=== PATIENT | male | born 1980 | race Caucasian/White ===

== ENCOUNTER → 2019-06-19 | Outpatient (CLI) | payer OTHER ==
--- NOTE | 2019-06-23 03:40 | ECWPNPC ---
PATIENT NAME: MICHAEL BUTLER : 1980 GENDER: MALE VISIT DATE: 06/19/2019 DISCHARGE DATE: 06/19/19 1025 VISIT LOCKED DATE TIME: PHYSICIAN: CHUCK PAYNE MD RESOURCE: CHUCK PAYNE MD REASON FOR APPOINTMENT 1. BACK/CHRONIC PAIN PAT DONE HISTORY OF PRESENT ILLNESS PAIN SCREENING: PATIENT HAS A COMPLAINT OF ACUTE OR CHRONIC PAIN :YES 38 YEAR OLD MALE PATIENT WITH A HISTORY OF CHRONIC LOW BACK AND LEG PAIN. THE PATIENT DESCRIBES HIS PAIN ACHING, BURNING, HAVE IT ALL THE TIME, SHARP, STABBING, TENDER, THROBBING, SORE, SHOOTING WITH A PAIN SCORE OF 5-8/10 DEPENDING ON PHYSICAL ACTIVITY. 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 THE PATIENT SAYS HIS PAIN GETS WORSE THROUGHOUT THE DAY AND INCREASES WITH ACTIVITIES. THE PATIENT SAYS HIS PAIN IS AFFECTING HIS ABILITY TO PERFORM HIS DAILY ACTIVITIES SUCH WORKING, [employer]OC[employer] SHOPPING, AND ENJOYING FAMILY ACTIVITIES. THE PATIENT SAYS HE HAS TRIED PHYSICAL THERAPY AND INJECTION THERAPY SUCH EPIDURALS, FACET BLOCKS, AND SACROILIAC JOINT BLOCKS THAT HAS NOT HELPED WITH HIS LOW BACK PAIN. PATIENT DENIES UNEXPLAINABLE WEIGHT LOSS, FEVER, CHILLS, NEW CHANGES ON HIS URINARY OR BOWEL CONTROL. FALL RISK SCREENING: SCREENING :NO FALLS REPORTED IN THE LAST YEAR CURRENT MEDICATIONS TAKING METHOCARBAMOL 500 MG TABLET 1.5 TABLETS ORALLY EVERY 4 HRS TAKING TIZANIDINE HCL 2 MG TABLET 1 TABLET NEEDED ORALLY BEFORE BEDTIME TAKING LIDOCAINE 4 % PATCH DIRECTED EXTERNALLY TAKING OMEPRAZOLE 40 MG CAPSULE DELAYED RELEASE 1 CAPSULE 30 MINUTES BEFORE MORNING MEAL ORALLY ONCE A DAY MEDICATION LIST REVIEWED AND RECONCILED WITH THE PATIENT PAST MEDICAL HISTORY CHRONIC BACK PAIN CHRONIC KNEE PAIN -TENDONITIS ACID REFLUX PTSD EDUIN W/CPAP ALLERGIES N.K.D.A. SURGICAL HISTORY LEFT SHOULDER SURGERY-DECOMPRESSION, LABRUM REPAIR 2009 FAMILY HISTORY FATHER: ALIVE 67 YRS MOTHER: ALIVE 66 YRS FATHER- PROSTATE CANCER. SOCIAL HISTORY GENERAL: TOBACCO USE ARE YOU A:NONSMOKER LATEX QUESTIONNAIRE LATEX ALLERGY : HAVE YOU EVER DEVELOPED ANY TYPE OF REACTION AFTER HANDLING LATEX PRODUCTS SUCH RUBBER GLOVES, CONDOMS, DIAPHRAGMS, BALLOONS, SOCKS, OR UNDERWEAR?NO LATEX ALLERGY : HAVE YOU EVER DEVELOPED ANY TYPE OF REACTION DURING OR AFTER DENTAL APPOINTMENT, VAGINAL/RECTAL EXAMINATION, SURGICAL PROCEDURE, OR ANY OTHER EXPOSURE?NO LATEX RISK : HAVE YOU EVER HAD ANY DIFFICULTY BREATHING OR HIVES AFTER EATING OR HANDLING ANY FRUITS, OR VEGETABLES; SUCH KIWI, BANANAS, STONE FRUITS, OR CHESTNUTSNO LATEX RISK : DO YOU HAVE A PREVIOUS PERSONAL HISTORY OF MORE THAN NINE SURGERIES, SPINA BIFIDA, OR REPEATED CATHERIZATIONS? NO LATEX RISK : ARE YOU FREQUENTLY EXPOSED TO LATEX PRODUCTS IN YOUR OCCUPATION?NO DATE ASKED : 06/18/2019 RECREATIONAL DRUG USE DRUG USE?NO CAFFEINE CAFFEINE USE?YES HOW OFTEN AND HOW MUCH? 1/DAY LEARNING BARRIERS / SPECIAL NEEDS BARRIERS TO LEARNING?NO HEARING IMPAIRED?NO VISION IMPAIRED?NO COGNITIVELY IMPAIRED?NO READINESS TO LEARN?YES LEARNING PREFERENCES?YES : VISUAL EMOTIONAL BARRIERS?NO SPECIAL DEVICES?NO RABBLER NEEDED?NO DOMESTIC VIOLENCE DO YOU FEEL SAFE IN YOUR ENVIRONMENT?YES OCCUPATION: ACTIVE . DIET: REGULAR-CURRENTLY KETO. EXERCISE: RESISTANCE TRAINING, WALKS. MARITAL STATUS: . NEW PATIENT PAIN DIARY TODAY'S VISIT 06/18/2019 PATIENT DESCRIBES PAIN :ACHING, BURNING, HAVE IT ALL THE TIME, SHARP, STABBING, TENDER, THROBBING, SORE, SHOOTING PAIN GETS WORSE THROUGHOUT THE DAY FROM 0-10, WHAT LEVEL IS YOUR PAIN TODAY?5.5 PRECIPITATING FACTORS WEIGHT, PRESSURE, STAIRS, BENDING, LIFTING, PROLONGED WALKING, PROLONGED SITTING ALLEVIATING FACTORS HEAT, RECLINING, TENS UNIT, MEDICATIONS PAIN CLINIC PFS, CLERGY, PUBLIC HEALTH REFERRALS WAS THE PROVIDER NOTIFIED OF ANY PERTINENT INFO?YES HAS THE PATIENT BEEN EDUCATED REGARDING HIS/HER PLAN OF CARE?YES HAS THE PATIENT BEEN EDUCATED REGARDING PAIN, THE RISK FOR PAIN, THE IMPORTANCE OF EFFECTIVE PAIN MANAGEMENT, AND THE PAIN ASSESSMENT PROCESS?YES ADVANCE DIRECTIVE ADVANCE DIRECTIVE DISCUSSED WITH PATIENT:YES PT ACTIVE , NO HCP AT THIS TIME HOSPITALIZATION/MAJOR DIAGNOSTIC PROCEDURE DENIES PAST HOSPITALIZATION REVIEW OF SYSTEMS REVIEWED BY: PROVIDER: CHUCK PAYNE MD . CONSTITUTIONAL: ANY CHANGE IN YOUR MEDICAL CONDITION? NO . CHILLS NO . FEVER NO . INFECTION: DO YOU HAVE NEW INFECTIONS? NO . DO YOU HAVE HISTORY OF MRSA? NO . MUSCULOSKELETAL: ANY NEW PATTERNS OF PAIN OR NUMBNESS? NO . SYSTEMIC LUPUS NO . GASTROENTEROLOGY: ANY NEW CHANGE IN BOWEL CONTROL? NO . BARRETTS ESOPHAGUS NO . CIRRHOSIS NO . HEPATITIS NO . LIVER FAILURE NO . ACID REFLUX YES . UNEXPLAINED WEIGHT LOSS NO . GENITOURINARY: ANY NEW CHANGE IN BLADDER CONTROL? NO . IS THERE A CHANCE YOU COULD BE ? NO . HEMATOLOGY/LYMPH: DO YOU TAKE ANY BLOOD THINNERS? (FOR EXAMPLE- COUMADIN, PLAVIX, AGGRENOX, PLATEL, PRADAXA, OR XARELTO) NO . WHEN WAS YOUR LAST DOSE? DATE: TIME: . LOW PLATELET COUNT NO . SICKLE CELL DISEASE NO . VON WILLIEBRANDS NO . FACTOR V LEIDEN NO . THALLASEMIA NO . ANEMIA NO . EASY BRUISING NO . NEUROLOGY: HAVE YOU FALLEN IN THE PAST 12 MONTHS? NO . ANY NEW EXTREMITY NUMBNESS OR WEAKNESS? NO . HEAD INJURY YES- THROUGHOUT [employer] C[employer]ER HAS HAD MULTIPLE . DEMENTIA NO . CEREBRAL PALSY NO . MULTIPLE SCLEROSIS NO . DIZZINESS NO . HEADACHE FREQUENT . STROKES NO . VERTIGO NO . CARDIOLOGY: DO YOU HAVE A PACEMAKER OR DEFIBRILLATOR? NO . ANGINA NO . HEART ATTACK NO . HEART SURGERY NO . CONGESTIVE HEART FAILURE/FLUID OVERLOAD NO . CHEST PAIN NO . HIGH BLOOD PRESSURE NO . IRREGULAR HEART BEAT NO . RESPIRATORY: HAVE YOU BEEN SICK IN THE PAST WEEK? NO . FEVER NO . FLU LIKE SYMPTOMS? NO . CPAP YES . BYPAP NO . ASTHMA NO . EMPHYSEMA NO . CHRONIC LUNG DISEASES NO . SHORTNESS OF BREATH ON EXERTION NO . COUGH NO . SNORING YES . INTEGUMENTARY: DO YOU HAVE ANY RASHES OR OPEN SORES? NO . ALLERGIC/IMMUNO: ARE YOU ALLERGIC TO IV DYE? NO . ANY NEW ALLERGIES? NO . PSYCHIATRIC: DO YOU HAVE THOUGHTS OF HURTING YOURSELF OR SOMEONE ELSE? NO . ARE YOU ABUSED, NEGLECTED, OR IN AN UNSAFE ENVIRONMENT? NO . ENDOCRINOLOGY: ARE YOU DIABETIC? NO . THYROID DISORDER NO . OTHER: DO YOU NEED ANY PRESCRIPTIONS? NO . IF YES, PLEASE LIST: ____ . ANY NEW PROBLEMS WITH YOUR MEDICATIONS? NO . WHEN DID YOU LAST EAT? ____ . WHEN DID YOU LAST DRINK? ____ . WHAT DID YOU LAST DRINK? ____ . NAME OF PERSON DRIVING YOU HOME? ____ . DO YOU HAVE ANY OTHER QUESTIONS OR CONCERNS PT HAS BEEN SEEING MD WASSERMAN FOR NECK AND BACK PAIN. MD WASSERMAN HAS SUBMITTED REQUEST FOR DCS TRIAL TO [facility]/.. [facility]/ STATES THAT "PT DOES NOT MEET CRITERIA, PT DOES NOT HAVE HX OF FAILED BACK SX AND OR COMPLEX REGIONAL PAIN SYNDROME, MD IS REQUESTING SECOND OPINION"- THIS INFORMATION WAS RETRIEVED FROM REFERRAL DOCUMENTATION . VITAL SIGNS WT 251 LBS, HT 72 IN, BMI 34.04 INDEX, BP 145/95 MM HG, HR 90 /MIN, RR 18 /MIN, TEMP 97.2 F, OXYGEN SAT % 97%, SAFE IN ENV? (Y/N) YES, NA INITIALS AW [id number], REVIEWED BY: ANA. EXAMINATION GENERAL EXAMINATION: PATIENT IS ALERT O X 3 AND COOPERATIVE. LUNGS CLEAR, TO AUSCULTATION. HEART: NO MURMURS OR GALLOPS; FACIAL CRANIAL NERVES ARE GROSSLY NORMAL. GOOD SYMMETRY OF FACIAL MUSCLE MOVEMENT. NORMAL VISUAL VU. TENDERNESS OVER THE PARASPINAL MUSCLE GROUP OF THE LOW BACK. PRESENCE OF BANDS OF TISSUE AND TRIGGER POINTS WITH RESTRICTION OF MOVEMENT OF THE LOW BACK. ANTALGIC WALK. PATIENT IS LIMPING A LITTLE FROM THE LEFT LEG, WHICH HE MENTIONS HE WILL BE HAVING A LEFT KNEE SURGERY SOON. LEFT LEG IS WEAKER AT EXTENSION AND FLEXION. STRAIGHT LEG RAISES OF BOTH LEGS ARE POSITIVE FOR RADICULOPATHY AT 35-40 DEGREES. MRI OF THE LUMBAR SPINE DONE ON 09/25/2018 SHOWS DISC DEGENERATION AT L3-L4 AND L4-L5. ASSESSMENTS LUMBAGO WITH SCIATICA, LEFT SIDE - M54.42 (PRIMARY) LUMBAGO WITH SCIATICA, RIGHT SIDE - M54.41 OTHER CHRONIC PAIN - G89.29 INTERVERTEBRAL DISC DISORDERS WITH RADICULOPATHY, LUMBAR REGION - M51.16 MYALGIA, OTHER SITE - M79.18 SPONDYLOSIS WITHOUT MYELOPATHY OR RADICULOPATHY, LUMBAR REGION - M47.816 TREATMENT LUMBAGO WITH SCIATICA, LEFT SIDE CLINICAL NOTES: WE DISCUSSED SEVERAL ISSUES WITH MR. BUTLER'S PAIN MANAGEMENT CASE. 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 THE PAIN CONTINUES TO PERSIST FOR THE PATIENT. I DISCUSSED THE OPTION OF A DCS TRIAL AND WENT OVER THE EXPECTATIONS AND PROCESS OF THE TRIAL AND IMPLANT. THE PATIENT REPORTS UNDERSTANDING AND WOULD LIKE TO MOVE FORWARD WITH A DCS TRIAL. I DISCUSSED WITH THE PATIENT ABOUT TRYING ACUPUNCTURE FOR HIS PAIN, AND HE SAID HE MAY CONSIDER IT. THE PATIENT WILL CALL NEEDED. INSTRUCTIONS WERE GIVEN, QUESTIONS WERE ANSWERED, PATIENT REPORTS UNDERSTANDING AND AGREES WITH THE PLAN. I, HERIBERTO GIL, DOCUMENTED THE ABOVE INFORMATION ACTING A SCRIBE FOR DR. PAYNE. I HAVE REVIEWED THE ABOVE DOCUMENT, WRITTEN BY HERIBERTO LAYIBStarr AND I VERIFY THAT IT IS ACCURATE. DEAR DR. NATASHA MASON: THANK YOU FOR YOUR KIND REFERRAL OF MICHAEL BUTLER. IF YOU WANT TO DISCUSS HIS CASE WITH ME PLEASE CALL ME AT THE PAIN CENTER AT [phone]. SINCERELY, CHUCK PAYNE MD PAIN MEDICINE . PROCEDURE CODES FA211 ESTABILISHED PATIENT [facility] CHARGE [id number] CURRENT MEDS W/DOSAGES DOCUMENTED G8730 PAIN ASSESS POS TOOL F/U PLAN DOC DISPOSITION & COMMUNICATION FOLLOW UP REASON: CALL NEEDED ELECTRONICALLY SIGNED BY CHUCK PAYNE MD, ON 06/22/2019 AT 09:40 AM EDT DISCLAIMER : THIS IS A VISIT SUMMARY EXTRACTED FROM THE [employer] CHART. IT IS NOT A COPY OF THE [employer] PROGRESS NOTE. BRIED
== END ==
LOC: M PAIN 09:00
PROVIDERS: ATTEND Anesthesiology
DX: M54.42 Lumbago with sciatica, left side (principal); M54.41 Lumbago with sciatica, right side; G89.29 Other chronic pain; M79.18 Myalgia, other site; M47.816 Spondylosis without myelopathy or radiculopathy, lumbar region; Z79.899 Other long term (current) drug therapy

== ENCOUNTER 2019-06-21 17:56 | Emergency (ER) | payer OTHER ==
[~2019-06-21] VITALS: Ht 182.9 cm; Wt 113.4 kg
[2019-06-21 17:57] VITALS: BP 151/75
--- NOTE | 2019-06-22 03:44 | REP ---
Clinical: Trauma. Technique: AP, lateral, bilateral oblique views of the left ankle. Findings: Lateral swelling consist with inversion injury. No acute fracture or dislocation. Joint spaces and ankle mortise are intact. No subcutaneous emphysema or foreign body. Impression: Lateral swelling. No fracture. Electronically Signed by Ab Mi MD 06/22/2019 03:36 A
== END 2019-06-21 19:17 | disposition home or self-care (01) ==
LOC: M ED 17:56
DX: S93.402A Sprain of unspecified ligament of left ankle, initial encounter (principal); W10.8XXA Fall (on) (from) other stairs and steps, initial encounter; Y92.098 Other place in other non-institutional residence as the place of occurrence of the external cause

== ENCOUNTER → 2019-09-17 | Outpatient (CLI) | payer OTHER | LOC: M LABSMTC 13:40 | PROVIDERS: ATTEND Orthopaedic Surgery | DX: Z11.59 Encounter for screening for other viral diseases (principal) ==

== ENCOUNTER 2021-01-18 09:24 | Day surgery (SDC) | payer OTHER ==
[~2021-01-18] VITALS: Ht 182.9 cm; Wt 118.8 kg
[~2021-01-18 09:24] MED LIST: LEXA1TAB2; LIDOCAINE 2% 100MG/5ML SDV (FOR ANES.) As Ordered ONE; NS 1,000 ML IV ONE; OMEP40CA5; TADA10TA; TIZA2TA; propofoL 200 MG/20 ML VIAL As Ordered ONE
[2021-01-18 11:55] VITALS: BP 115/81
== END 2021-01-18 12:08 | disposition home or self-care (01) ==
LOC: M SDC 09:24
PROVIDERS: ATTEND Internal Medicine Gastroenterology
DX: K22.89 Other specified disease of esophagus (principal); D09.9 Carcinoma in situ, unspecified; R12 Heartburn; K21.9 Gastro-esophageal reflux disease without esophagitis; D37.4 Neoplasm of uncertain behavior of colon; R19.7 Diarrhea, unspecified; K63.89 Other specified diseases of intestine; K62.5 Hemorrhage of anus and rectum; K63.5 Polyp of colon; K64.0 First degree hemorrhoids; K63.3 Ulcer of intestine; G47.33 Obstructive sleep apnea (adult) (pediatric); F41.9 Anxiety disorder, unspecified; F84.0 Autistic disorder; F43.10 Post-traumatic stress disorder, unspecified; G43.909 Migraine, unspecified, not intractable, without status migrainosus; Z79.899 Other long term (current) drug therapy

== ENCOUNTER 2023-08-13 09:57 | Emergency (ER) | payer OTHER ==
[~2023-08-13] VITALS: Ht 182.9 cm; Wt 132.5 kg
[~2023-08-13 09:57] MED LIST changes: -LIDOCAINE 2% 100MG/5ML SDV (FOR ANES.) As Ordered ONE; -NS 1,000 ML IV ONE; -propofoL 200 MG/20 ML VIAL As Ordered ONE
[2023-08-13] MEDS ORDERED: LORA-930 (10:08)
[2023-08-13] MEDS ORDERED: AMLO1TAB24 (10:08)
[2023-08-13] MEDS ORDERED: LISI20TA33 (10:08)
[2023-08-13 11:02] LABS: BASO # 0.1 10^3/uL (0.0-0.2); BASO % 0.8 % (0.0-1.0); EOS # 0.1 10^3/uL (0.0-0.5); EOS % 1.7 % (0.0-3.0); HEMATOCRIT 47.3 % (42.0-52.0); HEMOGLOBIN 16.7 g/dl (13.5-17.5); LYMPH # 1.9 10^3/uL (1.5-5.0); LYMPH % 28.6 % (24.0-44.0); MEAN CORPUSCULAR HEMOGLOBIN 30.5 pg (27.0-33.0); MEAN CORPUSCULAR HGB CONC 35.3 g/dl (32.0-36.5); MEAN CORPUSCULAR VOLUME 86.5 fl (80.0-96.0); MONO # 0.7 10^3/uL (0.0-0.8); MONO % 11.2 % (2.0-8.0); NEUTROPHILS # 3.8 10^3/uL (1.5-8.5); NEUTROPHILS % 56.8 % (36.0-66.0); PLATELET COUNT, AUTOMATED 146 10^3/uL (150-450); RED BLOOD COUNT 5.47 10^6/uL (4.30-6.10); WHITE BLOOD COUNT 6.6 10^3/uL (4.0-10.0)
[2023-08-13 11:28] LABS: LIPASE 30 U/L (12-53)
[2023-08-13 11:30] LABS: ALBUMIN 4.6 G/DL (3.2-5.2); ALKALINE PHOSPHATASE 57 U/L (46-116); ALT/SGPT 112 U/L (7.0-40); AST/SGOT 57 U/L (<34); BILIRUBIN,DIRECT 0.2 MG/DL (<0.4); BILIRUBIN,TOTAL 0.7 MG/DL (0.3-1.2); BLOOD UREA NITROGEN 11 MG/DL (9-23); CALCIUM LEVEL 9.5 MG/DL (8.5-10.1); CARBON DIOXIDE LEVEL 25 MMOL/L (20-31); CHLORIDE LEVEL 103 MMOL/L (98-107); CREATININE FOR GFR 0.71 MG/DL (0.70-1.30); GLOMERULAR FILTRATION RATE > 60.0 (>60); GLUCOSE, FASTING 100 MG/DL (60-100); SODIUM LEVEL 135 MMOL/L (136-145); TOTAL PROTEIN 7.1 G/DL (5.7-8.2)
[2023-08-13 13:58] VITALS: BP 134/82; TEMP 98.6; O2SAT 96
[2023-08-13] MEDS: ONDANSETRON 4MG ORAL DISINTEGRATING TAB PO ONE (14:04)
[2023-08-13] MEDS: IPRATROPIUM 0.5MG/ALBUTEROL 2.5MG INH SOL UD 3ML (DUONEB) NEB SCH (14:18)
[2023-08-13] MEDS: AUGMENTIN 875 MG TAB PO ONE (15:58)
[2023-08-13] MEDS ORDERED: AMOX875T2 PO (15:58)
== END 2023-08-13 16:03 | disposition home or self-care (01) ==
LOC: M ED 09:57
DX: K52.9 Noninfective gastroenteritis and colitis, unspecified (principal); R74.01 Elevation of levels of liver transaminase levels; I51.7 Cardiomegaly; J90 Pleural effusion, not elsewhere classified; K76.0 Fatty (change of) liver, not elsewhere classified; K44.9 Diaphragmatic hernia without obstruction or gangrene; I10 Essential (primary) hypertension; G47.33 Obstructive sleep apnea (adult) (pediatric); Z79.811 Long term (current) use of aromatase inhibitors; Z79.2 Long term (current) use of antibiotics; Z79.899 Other long term (current) drug therapy

== ENCOUNTER 2024-04-01 07:25 | Emergency (ER) | payer OTHER ==
[~2024-04-01 07:25] MED LIST changes: +AMLO1TAB24; +AMOX875T2 PO; +LISI20TA33; +LORA-930
[2024-04-01 12:08] VITALS: BP 117/85; TEMP 97.4; O2SAT 94
== END 2024-04-01 12:10 | disposition home or self-care (01) ==
LOC: M ED 07:25
DX: S43.401A Unspecified sprain of right shoulder joint, initial encounter (principal); W19.XXXA Unspecified fall, initial encounter; Y92.512 Supermarket, store or market as the place of occurrence of the external cause; Y93.9 Activity, unspecified; Y99.9 Unspecified external cause status; I10 Essential (primary) hypertension; K21.9 Gastro-esophageal reflux disease without esophagitis; F41.9 Anxiety disorder, unspecified; F17.200 Nicotine dependence, unspecified, uncomplicated; F12.10 Cannabis abuse, uncomplicated; Z79.899 Other long term (current) drug therapy

== ENCOUNTER → 2024-11-02 | Outpatient (CLI) | payer OTHER | LOC: M RAD 07:54 | PROVIDERS: ATTEND Nurse Practitioner Family | DX: R16.0 Hepatomegaly, not elsewhere classified (principal); R94.5 Abnormal results of liver function studies ==